=== PATIENT | female | born 1980 | race Caucasian/White ===

== ENCOUNTER 2021-04-09 21:51 | Inpatient (IN) | payer OTHER, SELFPAY ==
[2021-04-09] MEDS ORDERED: Ketamine 50 MG/ML (10ML VIAL) ONE (21:53)
[2021-04-09] MEDS ORDERED: Fentanyl 100 MCG/2 ML VIAL ONE (22:05)
[2021-04-09 22:12] LABS: #Eosinphils 0.2 thou/uL (0.0-0.7); #Lymphocytes 5.2 thou/uL (1.20-3.40); #Monocytes 0.5 thou/uL (0.11-0.59); #Neutrophils 6.1 thou/uL (1.40-6.50); %Basophils 0.2 % (0.0-1.0); %Eosinophils 1.7 % (0.0-10.0); %Lymphocytes 42.7 % (21.0-51.0); %Monocytes 4.5 % (0.0-10.0); %Neutrophils 50.9 % (42.0-75.0); Hemoglobin 10.8 g/dL (12.0-16.0); Mean Corpuscular HGB CONC 32.7 g/dL (32.0-36.0); Mean Corpuscular Hemoglobin 30.1 pg (27.0-31.0); Mean Platelet Volume 6.1 fL (7.4-10.4); Platelet Count 331 thou/uL (130-400); RBC Distribution Width 12.4 % (11.5-14.5); White Blood Cell (WBC) Count 12.1 thou/uL (4.8-10.8)
[2021-04-09] MEDS ORDERED: Fentanyl CADD 100 ML IV SCH (22:15)
[2021-04-09 22:18] LABS: BHCG - Serum Negative (NEGATIVE); Pregs Control Background? CLEAR/WHITE (CLR/WHITE); Pregs Control Bar Appear? YES (CONTROL BAR)
[2021-04-09 22:26] LABS: INR-International Normal Ratio 1.1; PTT 34.6 sec (22.9-36.1); Prothrombin Time 14.6 sec (12.0-14.7)
[2021-04-09 22:30] LABS: ALT (SGPT) 44 U/L (8-55); AST (SGOT) 63 U/L (5-34); Albumin 2.9 g/dL (3.5-5.0); Alcohol Less than 10 mg/dL (Less than 10); Alkaline Phosphatase 65 U/L (40-110); Anion Gap 15 mmol/L (10-20); BUN (Urea Nitrogen) 8 mg/dL (7.0-18.7); Bilirubin, Total Less than 0.2 mg/dL (0.2-1.2); Calc. Creatinine Clearance 0 mL/min (70-130); Calcium 7.4 mg/dL (7.8-10.44); Carbon Dioxide 24 mmol/L (22-29); Chloride 108 mmol/L (98-107); Globulin 2.4 g/dL (2.4-3.5); Glucose 156 mg/dL (70-105); Protein, Total 5.3 g/dL (6.0-8.3); Sodium 144 mmol/L (136-145)
[2021-04-09] MEDS ORDERED: Promethazine HCl 25 MG/ML VIAL IM PRN (22:32)
[2021-04-09] MEDS ORDERED: Ondansetron PF 4 MG/2 ML Vial IVP PRN (22:32)
[2021-04-09] MEDS ORDERED: Ondansetron ODT 4 MG TAB PO PRN (22:32)
[2021-04-09] MEDS ORDERED: Dextrose 50% Abboject 50 ML SYRINGE SLOW IVP PRN (22:32)
[2021-04-09] MEDS ORDERED: Dextrose 5% in Water 1,000 ML IV PRN (22:32)
[2021-04-09] MEDS ORDERED: hydrALAZINE 20 MG/ML VIAL SLOW IVP PRN (22:32)
[2021-04-09 22:33] LABS: Potassium 2.8 mmol/L (3.5-5.1)
[2021-04-09] MEDS ORDERED: CEFAZOLIN 1 GM VIAL ONE (22:39)
[2021-04-09] MEDS ORDERED: Boostrix 0.5 ML (Tdap) VIAL ONE (22:39)
[2021-04-09 22:43] LABS: CO2 Tension 37.6 mmHg (35.0-45.0); pH, Arterial 7.49 (7.35-7.45)
[2021-04-09 22:44] LABS: Actual Bicarbonate (HCO3a) 28.3 mEq/L (22-28); Base Excess (BEa) 4.8 mEq/L (-2.0 to +3.0); Carboxyhemoglobin (COHb) 1.5 gm% (0.0-3.0); Hemoglobin (Hb) 10.4 g/dL (12.0-16.0); O2 Tension (PaO2), arterial 49.8 mmHg (80.0-100.0)
[2021-04-09 22:45] LABS: Analyzer IN Cardio ER; Calcium, Ionized (arterial) 0.98 mmol/L (1.12-1.30); Potassium - ABG Lab 2.36 mmol/L (3.70-5.30); Puncture Site RRA
[2021-04-09] MEDS ORDERED: Sodium Chloride 0.9% 1,000 ML IV SCH (22:45)
[2021-04-09 22:56] LABS: Amphetamine Not Detected (NotDetected); Bacteria/HPF None Seen HPF (None Seen); Barbiturates Screen Not Detected (NotDetected); Benzodiazepine Screen Not Detected (NotDetected); Bilirubin Negative (Negative); Blood, Urine 1+ (Negative); Clarity Turbid (Clear); Cocaine Metabolite Screen Not Detected (NotDetected); Glucose, Urine (Dipstick) Normal (Negative); Ketone, Urine Negative (Negative); Leukocyte Negative Leu/uL (Negative); Methadone Not Detected (NotDetected); Methamphetamine Not Detected (NotDetected); Nitrite Negative (Negative); Opiate Screen Not Detected (NotDetected); Oxycodone Screen Not Detected (NotDetected); Phencyclidine (PCP) Not Detected (NotDetected); Protein, Urine (Dipstick) 50 mg/dL (Neg-Trace); RBC/HPF 21-50 HPF (0-3); Specific Gravity, Urine 1.019 (1.002-1.036); Squamous Epithelial 0-3 HPF (0-3); THC/Cannabinoid Screen Not Detected (NotDetected); Tricyclic Screen Not Detected (NotDetected); Urobilinogen Normal mg/dL (Less than 2); pH, Urine 8.5 (5.0-9.0)
[2021-04-09] MEDS ORDERED: Calcium Chloride 1 GM/10 ML Abboject SYRINGE ONE ×3 (23:04→23:06)
[2021-04-09 23:35] LABS: Hemoglobin 8.9 g/dL (12.0-16.0)
[2021-04-10 00:39] LABS: Magnesium 1.8 mg/dL (1.6-2.6); Phosphorus 2.4 mg/dL (2.3-4.7)
[2021-04-10 00:45] LABS: SARS-CoV-2 NAA Rapid Test DETECTED (NotDetected)
[2021-04-10 01:11] LABS: Actual Bicarbonate (HCO3a) 21.7 mEq/L (22-28); Base Excess (BEa) -1.8 mEq/L (-2.0 to +3.0); CO2 Tension 31.1 mmHg (35.0-45.0); Carboxyhemoglobin (COHb) 1.5 gm% (0.0-3.0); Hemoglobin (Hb) 6.7 g/dL (12.0-16.0); O2 Tension (PaO2), arterial 78.3 mmHg (80.0-100.0); Potassium - ABG Lab 2.57 mmol/L (3.70-5.30); pH, Arterial 7.46 (7.35-7.45)
[2021-04-10 01:15] LABS: ALV-art Gradient 239.325 mmHg (0-20); Puncture Site Arterial Line
[2021-04-10] MEDS: Potassium Chloride 20 MEQ in Premix Bag 1 BAG IVPB SCH ×2 (02:56→04:42)
[2021-04-10 03:57] LABS: Hemoglobin 7.8 g/dL (12.0-16.0); Mean Corpuscular HGB CONC 32.7 g/dL (32.0-36.0); Mean Corpuscular Hemoglobin 30.2 pg (27.0-31.0); Mean Corpuscular Volume 92.4 fL (78.0-98.0); Mean Platelet Volume 6.2 fL (7.4-10.4); Platelet Count 220 thou/uL (130-400); RBC Distribution Width 12.4 % (11.5-14.5); Red Blood Cell (RBC) Count 2.58 mill/uL (4.20-5.40); White Blood Cell (WBC) Count 18.4 thou/uL (4.8-10.8)
[2021-04-10 04:01] LABS: SARS-CoV-2 NAA Rapid Test DETECTED (NotDetected)
[2021-04-10 05:02] LABS: Anion Gap 15 mmol/L (10-20); BUN (Urea Nitrogen) 8 mg/dL (7.0-18.7); Calc. Creatinine Clearance 103 mL/min (70-130); Calcium 9.5 mg/dL (7.8-10.44); Carbon Dioxide 20 mmol/L (22-29); Chloride 119 mmol/L (98-107); Glucose 110 mg/dL (70-105); Magnesium 1.9 mg/dL (1.6-2.6); Phosphorus 2.9 mg/dL (2.3-4.7); Potassium 3.2 mmol/L (3.5-5.1); Sodium 151 mmol/L (136-145)
[2021-04-10] MEDS: Lactated Ringer's 1,000 ML IV SCH ×3 (05:16→15:19)
[2021-04-10] MEDS ORDERED: Magnesium Sulfate 3 GM in Sodium Chloride 0.9% 250 ML 250 ML IVPB SCH (05:30)
[2021-04-10 05:38] LABS: Band 19 % (5-11); Eosinophils 1 % (0-10); Lymphocytes 16 % (21-51); MDiff Complete? YES; Monocytes 1 % (0-10); Myelocyte 1 % (0-0); Neutrophil 62 % (42-75)
[2021-04-10] MEDS ORDERED: Potassium Phosphate 30 MMOL in Sodium Chloride 0.9% 250 ML 250 ML IVPB SCH (06:00)
[2021-04-10] MEDS: Famotidine/PF 20 mg/2ml Vial SLOW IVP SCH ×2 (07:32→20:45)
[2021-04-10] MEDS ORDERED: Hydrocortisone Sod Succ/PF 100 mg/2 ml Vial IVP SCH (07:45)
[2021-04-10 07:53] LABS: Actual Bicarbonate (HCO3a) 18.9 mEq/L (22-28); Base Excess (BEa) -2.7 mEq/L (-2.0 to +3.0); Calcium, Ionized (arterial) 1.24 mmol/L (1.12-1.30); Carboxyhemoglobin (COHb) 1.2 gm% (0.0-3.0); Hemoglobin (Hb) 6.4 g/dL (12.0-16.0)
[2021-04-10] MEDS ORDERED: Norepinephrine 8 MG/0.9% NS 250 ML ONE (08:41)
[2021-04-10] MEDS ORDERED: Norepinephrine 8 MG/0.9% NS 250 ML IVPB SCH (08:45)
[2021-04-10] MEDS: Levothyroxine Sodium 400 MCG in Sodium Chloride 0.9% 100 ML IVPB SCH (09:13)
[2021-04-10] MEDS: Vasopressin 20 UNIT, Admixture Fee 1 EACH in Sodium Chloride 0.9% 50 ML IV SCH ×2 (09:15→15:05)
[2021-04-10] MEDS: Hydrocortisone Sod Succ/PF 100 mg/2 ml Vial IVP SCH ×2 (12:30→16:39)
[2021-04-10] MEDS ORDERED: Albumin 5% 250 ML ONE (13:01)
[2021-04-10] MEDS: Albuterol 200 PUFF (6.7GM INHALER) INH SCH ×2 (13:21→23:57)
[2021-04-10] MEDS ORDERED: ceFAZolin Sodium (SDC) 2 GM in Premix Bag 1 BAG IVPB SCH (14:00)
[2021-04-10 14:01] LABS: ALV-art Gradient 188.075 mmHg (0-20); CO2 Tension 20.9 mmHg (35.0-45.0); Puncture Site Arterial Line; pH, Arterial 7.58 (7.35-7.45)
[2021-04-10 14:03] LABS: Actual Bicarbonate (HCO3a) 19.7 mEq/L (22-28); Base Excess (BEa) -4.5 mEq/L (-2.0 to +3.0); CO2 Tension 32.3 mmHg (35.0-45.0); Calcium, Ionized (arterial) 1.15 mmol/L (1.12-1.30); Hemoglobin (Hb) 8.4 g/dL (12.0-16.0); O2 Tension (PaO2), arterial 167.2 mmHg (80.0-100.0); Potassium - ABG Lab 4.19 mmol/L (3.70-5.30)
[2021-04-10 14:04] LABS: ALV-art Gradient 77.625 mmHg (0-20); Puncture Site Arterial Line
[2021-04-10 15:05] VITALS: BP 125/75
[2021-04-10 16:05] LABS: Hemoglobin 7.6 g/dL (12.0-16.0)
[2021-04-10 16:30] LABS: Anion Gap 16 mmol/L (10-20); BUN (Urea Nitrogen) 9 mg/dL (7.0-18.7); Calc. Creatinine Clearance 93 mL/min (70-130); Calcium 8.1 mg/dL (7.8-10.44); Carbon Dioxide 20 mmol/L (22-29); Chloride 126 mmol/L (98-107); Glucose 253 mg/dL (70-105); Magnesium 2.3 mg/dL (1.6-2.6); Phosphorus 3.8 mg/dL (2.3-4.7); Potassium 3.9 mmol/L (3.5-5.1); Sodium 158 mmol/L (136-145)
[2021-04-10 19:41] LABS: Hemoglobin 7.8 g/dL (12.0-16.0)
[2021-04-10 19:55] LABS: Sodium 156 mmol/L (136-145)
[2021-04-10] MEDS ORDERED: HumaLOG 300 UNITS/3 ML VIAL SC PRN (20:40)
[2021-04-10] MEDS: CEFAZOLIN 2 GM, Admixture Fee 1 EACH in Sodium Chloride 0.9% 100 ML IVPB SCH (20:45)
[2021-04-11] MEDS: Vasopressin 20 UNIT, Admixture Fee 1 EACH in Sodium Chloride 0.9% 50 ML IV SCH (00:14)
[2021-04-11] MEDS: Hydrocortisone Sod Succ/PF 100 mg/2 ml Vial IVP SCH ×4 (00:30→17:14)
[2021-04-11] MEDS: Lactated Ringer's 1,000 ML IV SCH ×3 (00:30→14:35)
[2021-04-11] MEDS: HumaLOG 300 UNITS/3 ML VIAL SC PRN ×2 (00:31→03:42)
[2021-04-11] MEDS: Levothyroxine Sodium 400 MCG in Sodium Chloride 0.9% 100 ML IVPB SCH ×2 (00:47→14:34)
[2021-04-11 01:40] LABS: Sodium 155 mmol/L (136-145)
[2021-04-11 04:59] LABS: Anion Gap 8 mmol/L (10-20); BUN (Urea Nitrogen) 8 mg/dL (7.0-18.7); Calc. Creatinine Clearance 114 mL/min (70-130); Calcium 8.5 mg/dL (7.8-10.44); Carbon Dioxide 26 mmol/L (22-29); Chloride 123 mmol/L (98-107); Glucose 194 mg/dL (70-105); Magnesium 2.3 mg/dL (1.6-2.6); Phosphorus 2.7 mg/dL (2.3-4.7); Potassium 3.3 mmol/L (3.5-5.1); Sodium 154 mmol/L (136-145)
[2021-04-11 05:23] LABS: Band 20 % (5-11); Hemoglobin 6.5 g/dL (12.0-16.0); Lymphocytes 7 % (21-51); MDiff Complete? YES; Mean Corpuscular HGB CONC 33.5 g/dL (32.0-36.0); Mean Corpuscular Hemoglobin 31.2 pg (27.0-31.0); Mean Corpuscular Volume 93.2 fL (78.0-98.0); Mean Platelet Volume 7.1 fL (7.4-10.4); Monocytes 1 % (0-10); Neutrophil 72 % (42-75); Platelet Count 119 thou/uL (130-400); Platelet Morphology Comment Appears Decreased; RBC Distribution Width 12.7 % (11.5-14.5); Red Blood Cell (RBC) Count 2.09 mill/uL (4.20-5.40); Small Platelets SLIGHT; White Blood Cell (WBC) Count 17.6 thou/uL (4.8-10.8)
[2021-04-11] MEDS ORDERED: Potassium Chloride 40 MEQ in Premix Bag 1 BAG IVPB SCH (05:30)
[2021-04-11 05:35] VITALS: BMI 25.6
[2021-04-11] MEDS: CEFAZOLIN 2 GM, Admixture Fee 1 EACH in Sodium Chloride 0.9% 100 ML IVPB SCH ×2 (06:55→14:40)
[2021-04-11] MEDS: Albuterol 200 PUFF (6.7GM INHALER) INH SCH ×3 (07:06→19:04)
[2021-04-11 07:19] LABS: Sodium 152 mmol/L (136-145)
[2021-04-11] MEDS: Famotidine/PF 20 mg/2ml Vial SLOW IVP SCH (07:59)
[2021-04-11 12:57] LABS: Sodium 151 mmol/L (136-145)
[2021-04-11 16:00] VITALS: TEMP 98.1
== END 2021-04-11 10:49 | disposition expired | DRG 963 ==
LOC: ERS 21:51 → CCU 22:32
PROVIDERS: ADMIT Specialist; ATTEND Surgery
PROC: 0BH17EZ Insertion of Endotracheal Airway into Trachea, Via Natural or Artificial Opening (ICD-10-PCS; principal; 2021-04-09)
PROC: 5A1945Z Respiratory Ventilation, 24-96 Consecutive Hours (ICD-10-PCS; 2021-04-09)
PROC: 8E0ZXY6 Isolation (ICD-10-PCS; 2021-04-09)
PROC: 02HV33Z Insertion of Infusion Device into Superior Vena Cava, Percutaneous Approach (ICD-10-PCS; 2021-04-10)
PROC: 3E033XZ Introduction of Vasopressor into Peripheral Vein, Percutaneous Approach (ICD-10-PCS; 2021-04-10)
DX: S02.91XB Unspecified fracture of skull, initial encounter for open fracture (principal); S36.031A Moderate laceration of spleen, initial encounter; J96.00 Acute respiratory failure, unspecified whether with hypoxia or hypercapnia; U07.1 COVID-19; S06.A1XA Traumatic brain compression with herniation, initial encounter; S27.321A Contusion of lung, unilateral, initial encounter; S36.021A Major contusion of spleen, initial encounter; F84.0 Autistic disorder; D62 Acute posthemorrhagic anemia; E23.2 Diabetes insipidus; E87.0 Hyperosmolality and hypernatremia; S06.1X9A Traumatic cerebral edema with loss of consciousness of unspecified duration, initial encounter; S06.6X9A Traumatic subarachnoid hemorrhage with loss of consciousness of unspecified duration, initial encounter; G93.89 Other specified disorders of brain; F41.9 Anxiety disorder, unspecified; R40.2333 Coma scale, best motor response, abnormal flexion, at hospital admission; R40.2113 Coma scale, eyes open, never, at hospital admission; S06.5X9A Traumatic subdural hemorrhage with loss of consciousness of unspecified duration, initial encounter; S06.4X9A Epidural hemorrhage with loss of consciousness of unspecified duration, initial encounter; F31.9 Bipolar disorder, unspecified; F90.9 Attention-deficit hyperactivity disorder, unspecified type; R40.2213 Coma scale, best verbal response, none, at hospital admission; E87.6 Hypokalemia; M79.7 Fibromyalgia; S42.102A Fracture of unspecified part of scapula, left shoulder, initial encounter for closed fracture; E83.42 Hypomagnesemia; E83.39 Other disorders of phosphorus metabolism; V03.99XA Pedestrian with other conveyance injured in collision with car, pick-up truck or van, unspecified whether traffic or nontraffic accident, initial encounter; Z88.2 Allergy status to sulfonamides; Z88.1 Allergy status to other antibiotic agents; Z98.890 Other specified postprocedural states
CPT/HCPCS: 31500; 36415; 36416; 36430; 36600; 70450; 70486; 70498; 71045; 71260; 72125; 72170; 74177; 78610; 80048; 80053; 80306; 80307; 81003; 81015; 82533; 82550; 82805; 83605; 83735; 83930; 83935; 84100; 84703; 85025; 85610; 85730; 86850; 86900; 86901; 90471; 90715; 94002; 94003; 96365; 96367; 96375; 96376; 99292; A9521; G0390; J0690; J1720; J1815; J2597; J3010; J3475; J3480; J3490; J7050; J7070; J7120; P9016; P9045; S0028; U0002

== ENCOUNTER 2021-04-11 10:49 | Day surgery (SDC) | payer OTHER ==
[2021-04-11] MEDS ORDERED: Hydrocortisone Sod Succ/PF 100 mg/2 ml Vial IVP SCH (22:15)
[2021-04-11] MEDS ORDERED: Piperacillin/Tazobactam 3.375 GM in Sodium Chloride 0.9% 100 ML IVPB SCH (22:30)
[2021-04-11] MEDS: Phytonadione 10 MG/ML AMP SLOW IVP SCH (23:11)
[2021-04-11] MEDS: Lactated Ringer's 1,000 ML IV SCH (23:12)
[2021-04-12 00:11] LABS: Hemoglobin A1c 5.2 % (4.0-6.0)
[2021-04-12 00:16] LABS: INR-International Normal Ratio 1.2; PTT 34.5 sec (22.9-36.1); Prothrombin Time 15.8 sec (12.0-14.7)
[2021-04-12 00:20] LABS: Band 26 % (5-11); Hemoglobin 8.8 g/dL (12.0-16.0); Lymphocytes 6 % (21-51); MDiff Complete? YES; Mean Corpuscular HGB CONC 34.4 g/dL (32.0-36.0); Mean Corpuscular Hemoglobin 30.9 pg (27.0-31.0); Mean Platelet Volume 7.4 fL (7.4-10.4); Monocytes 17 % (0-10); Neutrophil 51 % (42-75); Platelet Count 91 thou/uL (130-400); Platelet Morphology Comment Appears Decreased; RBC Distribution Width 13.7 % (11.5-14.5); Red Blood Cell (RBC) Count 2.84 mill/uL (4.20-5.40); White Blood Cell (WBC) Count 21.2 thou/uL (4.8-10.8)
[2021-04-12 00:28] LABS: Lactic Acid 1.4 mmol/L (0.5-2.2)
[2021-04-12 00:31] LABS: ALT (SGPT) 46 U/L (8-55); AST (SGOT) 49 U/L (5-34); Albumin 2.7 g/dL (3.5-5.0); Alkaline Phosphatase 96 U/L (40-110); Anion Gap 8 mmol/L (10-20); BUN (Urea Nitrogen) 5 mg/dL (7.0-18.7); Bilirubin, Direct 0.2 mg/dL (0.1-0.3); Bilirubin, Total 0.4 mg/dL (0.2-1.2); Calc. Creatinine Clearance 149 mL/min (70-130); Calcium 8.7 mg/dL (7.8-10.44); Carbon Dioxide 22 mmol/L (22-29); Chloride 125 mmol/L (98-107); Globulin 2.1 g/dL (2.4-3.5); Glucose 125 mg/dL (70-105); Lipase 7 U/L (8-78); Magnesium 2.1 mg/dL (1.6-2.6); Phosphorus 2.4 mg/dL (2.3-4.7); Potassium 3.3 mmol/L (3.5-5.1); Protein, Total 4.8 g/dL (6.0-8.3); Sodium 152 mmol/L (136-145)
[2021-04-12 00:51] LABS: Bacteria/HPF None Seen HPF (None Seen); Bilirubin Negative (Negative); Blood, Urine Negative (Negative); Clarity Clear (Clear); Glucose, Urine (Dipstick) Normal (Negative); Ketone, Urine Negative (Negative); Leukocyte 250 Leu/uL (Negative); Nitrite Negative (Negative); Protein, Urine (Dipstick) Negative (Neg-Trace); RBC/HPF 0-3 HPF (0-3); Specific Gravity, Urine 1.004 (1.002-1.036); Urobilinogen Normal mg/dL (Less than 2)
[2021-04-12 00:55] LABS: CKMB 28.3 ng/mL (0-6.6)
[2021-04-12] MEDS ORDERED: Magnesium 2 GM/50 ML 2 GM in Premix Bag 1 BAG IVPB SCH (01:45)
[2021-04-12] MEDS ORDERED: Potassium Chloride 40 MEQ in Premix Bag 1 BAG IVPB SCH (01:45)
[2021-04-12] MEDS ORDERED: Albumin 25% 25 GM/100 ML BOT IVPB SCH (01:45)
[2021-04-12] MEDS: Phytonadione 10 MG/ML AMP SLOW IVP SCH (01:47)
[2021-04-12 01:58] LABS: Actual Bicarbonate (HCO3a) 21.7 mEq/L (22-28); CO2 Tension 28.8 mmHg (35.0-45.0); Calcium, Ionized (arterial) 1.22 mmol/L (1.12-1.30); Carboxyhemoglobin (COHb) 0.3 gm% (0.0-3.0); Hemoglobin (Hb) 9.1 g/dL (12.0-16.0); O2 Tension (PaO2), arterial 88.6 mmHg (80.0-100.0); Potassium - ABG Lab 3.17 mmol/L (3.70-5.30)
[2021-04-12] MEDS: Piperacillin/Tazobactam 3.375 GM in Sodium Chloride 0.9% 100 ML IVPB SCH ×3 (02:50→19:17)
[2021-04-12 03:30] LABS: Puncture Site RRA
[2021-04-12] MEDS: Lactated Ringer's 1,000 ML IV SCH (06:18)
[2021-04-12 06:19] VITALS: BMI 27.1
[2021-04-12 07:14] LABS: Hemoglobin 7.8 g/dL (12.0-16.0); Mean Corpuscular HGB CONC 34.6 g/dL (32.0-36.0); Mean Corpuscular Hemoglobin 31.2 pg (27.0-31.0); Mean Corpuscular Volume 90.3 fL (78.0-98.0); RBC Distribution Width 13.8 % (11.5-14.5); Red Blood Cell (RBC) Count 2.51 mill/uL (4.20-5.40); White Blood Cell (WBC) Count 21.2 thou/uL (4.8-10.8)
[2021-04-12 07:29] LABS: Lactic Acid 1.5 mmol/L (0.5-2.2)
[2021-04-12 07:44] LABS: ALT (SGPT) 36 U/L (8-55); AST (SGOT) 34 U/L (5-34); Albumin 3.8 g/dL (3.5-5.0); Alkaline Phosphatase 41 U/L (40-110); Anion Gap 9 mmol/L (10-20); BUN (Urea Nitrogen) 8 mg/dL (7.0-18.7); Bilirubin, Direct 0.2 mg/dL (0.1-0.3); Bilirubin, Total 0.4 mg/dL (0.2-1.2); Calc. Creatinine Clearance 125 mL/min (70-130); Calcium 9.1 mg/dL (7.8-10.44); Carbon Dioxide 24 mmol/L (22-29); Chloride 132 mmol/L (98-107); Globulin 1.9 g/dL (2.4-3.5); Glucose 132 mg/dL (70-105); Lipase 9 U/L (8-78); Phosphorus 2.1 mg/dL (2.3-4.7); Potassium 3.7 mmol/L (3.5-5.1); Protein, Total 5.7 g/dL (6.0-8.3); Sodium 161 mmol/L (136-145)
[2021-04-12] MEDS: Hydrocortisone Sod Succ/PF 100 mg/2 ml Vial IVP SCH ×3 (07:52→22:49)
[2021-04-12 07:59] LABS: Band 14 % (5-11); Lymphocytes 4 % (21-51); MDiff Complete? YES; Mean Platelet Volume 8.1 fL (7.4-10.4); Monocytes 2 % (0-10); Neutrophil 80 % (42-75); Platelet Count 88 thou/uL (130-400); Platelet Morphology Comment Appears Decreased
[2021-04-12 08:01] LABS: CKMB 14.4 ng/mL (0-6.6); Critical Call CKMB RESULT DECREASING
[2021-04-12 08:22] LABS: INR-International Normal Ratio 1.6; PTT 36.6 sec (22.9-36.1); Prothrombin Time 19.2 sec (12.0-14.7)
[2021-04-12] MEDS ORDERED: Potassium Phosphate 20 MMOL in Sodium Chloride 0.9% 250 ML 250 ML IVPB SCH ×2 (09:00→15:00)
[2021-04-12] MEDS: Levothyroxine Sodium 400 MCG in Sodium Chloride 0.9% 100 ML IVPB SCH (10:39)
[2021-04-12] MEDS ORDERED: Piperacillin/Tazobactam 3.375 GM VIAL ONE (10:43)
[2021-04-12 11:39] LABS: Bacteria/HPF None Seen HPF (None Seen); Bilirubin Negative (Negative); Blood, Urine Negative (Negative); Clarity Clear (Clear); Glucose, Urine (Dipstick) Normal (Negative); Ketone, Urine Negative (Negative); Leukocyte Negative Leu/uL (Negative); Nitrite Negative (Negative); Protein, Urine (Dipstick) Negative (Neg-Trace); RBC/HPF 0-3 HPF (0-3); Specific Gravity, Urine 1.002 (1.002-1.036); Squamous Epithelial None Seen HPF (0-3); Urobilinogen Normal mg/dL (Less than 2); WBC/HPF 0-3 HPF (0-3); pH, Urine 6.5 (5.0-9.0)
[2021-04-12] MEDS ORDERED: Sodium Chloride 0.45% 1,000 ML IV SCH (11:45)
[2021-04-12] MEDS ORDERED: Sodium Chloride 0.45% 500 ML IV SCH (11:45)
[2021-04-12 12:49] LABS: Hemoglobin 7.5 g/dL (12.0-16.0); Mean Corpuscular HGB CONC 35.1 g/dL (32.0-36.0); Mean Corpuscular Hemoglobin 31.8 pg (27.0-31.0); Mean Corpuscular Volume 90.8 fL (78.0-98.0); Platelet Count 82 thou/uL (130-400); Red Blood Cell (RBC) Count 2.36 mill/uL (4.20-5.40); White Blood Cell (WBC) Count 20.6 thou/uL (4.8-10.8)
[2021-04-12 12:53] LABS: INR-International Normal Ratio 1.3; Prothrombin Time 16.1 sec (12.0-14.7)
[2021-04-12 12:54] LABS: PTT 33.1 sec (22.9-36.1)
[2021-04-12 13:02] LABS: Lactic Acid 1.2 mmol/L (0.5-2.2)
[2021-04-12 13:09] LABS: Band 7 % (5-11); Lymphocytes 6 % (21-51); MDiff Complete? YES; Monocytes 1 % (0-10); Neutrophil 86 % (42-75); Platelet Morphology Comment Appears Decreased; Polychromasia SLIGHT = 2-3 cells (100X) (0-2/hpf)
[2021-04-12 13:22] LABS: ALT (SGPT) 35 U/L (8-55); AST (SGOT) 30 U/L (5-34); Albumin 3.5 g/dL (3.5-5.0); Alkaline Phosphatase 42 U/L (40-110); Anion Gap 7 mmol/L (10-20); BUN (Urea Nitrogen) 10 mg/dL (7.0-18.7); Bilirubin, Direct 0.2 mg/dL (0.1-0.3); Bilirubin, Total 0.4 mg/dL (0.2-1.2); Calc. Creatinine Clearance 125 mL/min (70-130); Carbon Dioxide 25 mmol/L (22-29); Chloride 134 mmol/L (98-107); Globulin 1.9 g/dL (2.4-3.5); Glucose 124 mg/dL (70-105); Lipase 14 U/L (8-78); Magnesium 2.9 mg/dL (1.6-2.6); Phosphorus 2.7 mg/dL (2.3-4.7); Potassium 3.5 mmol/L (3.5-5.1); Protein, Total 5.4 g/dL (6.0-8.3); Sodium 162 mmol/L (136-145)
[2021-04-12] MEDS: Albumin 25% 25 GM/100 ML BOT IVPB SCH (15:15)
[2021-04-12 16:12] LABS: Actual Bicarbonate (HCO3a) 20.9 mEq/L (22-28); Base Excess (BEa) -2.5 mEq/L (-2.0 to +3.0); CO2 Tension 30.3 mmHg (35.0-45.0); Calcium, Ionized (arterial) 1.19 mmol/L (1.12-1.30); Carboxyhemoglobin (COHb) 0.3 gm% (0.0-3.0); Hemoglobin (Hb) 7.4 g/dL (12.0-16.0); O2 Tension (PaO2), arterial 117.7 mmHg (80.0-100.0); Potassium - ABG Lab 3.58 mmol/L (3.70-5.30); pH, Arterial 7.46 (7.35-7.45)
[2021-04-12 17:27] LABS: Hemoglobin 7.1 g/dL (12.0-16.0); Mean Corpuscular HGB CONC 35.4 g/dL (32.0-36.0); Mean Corpuscular Hemoglobin 32.2 pg (27.0-31.0); Mean Corpuscular Volume 91.1 fL (78.0-98.0); Mean Platelet Volume 7.9 fL (7.4-10.4); Platelet Count 74 thou/uL (130-400); Red Blood Cell (RBC) Count 2.21 mill/uL (4.20-5.40); White Blood Cell (WBC) Count 19.6 thou/uL (4.8-10.8)
[2021-04-12 17:33] LABS: INR-International Normal Ratio 1.3; PTT 33.9 sec (22.9-36.1); Prothrombin Time 16.4 sec (12.0-14.7)
[2021-04-12 17:38] LABS: Lactic Acid 1.1 mmol/L (0.5-2.2)
[2021-04-12 18:14] LABS: Band 18 % (5-11); Lymphocytes 6 % (21-51); MDiff Complete? YES; Monocytes 1 % (0-10); Neutrophil 75 % (42-75); Ovalocytes SLIGHT = 2-5 cells (100X) (0-1/hpf); Platelet Morphology Comment Appears Decreased; Polychromasia MODERATE = 3-4 cells (100X) (0-2/hpf)
[2021-04-12 18:29] LABS: ALT (SGPT) 31 U/L (8-55); AST (SGOT) 25 U/L (5-34); Albumin 4.3 g/dL (3.5-5.0); Alkaline Phosphatase 40 U/L (40-110); Anion Gap 9 mmol/L (10-20); BUN (Urea Nitrogen) 12 mg/dL (7.0-18.7); Bilirubin, Direct 0.3 mg/dL (0.1-0.3); Bilirubin, Total 0.5 mg/dL (0.2-1.2); Calc. Creatinine Clearance 125 mL/min (70-130); Calcium 8.9 mg/dL (7.8-10.44); Carbon Dioxide 25 mmol/L (22-29); Chloride 130 mmol/L (98-107); Globulin 1.9 g/dL (2.4-3.5); Glucose 127 mg/dL (70-105); Lipase 22 U/L (8-78); Magnesium 2.8 mg/dL (1.6-2.6); Phosphorus 4.2 mg/dL (2.3-4.7); Potassium 3.6 mmol/L (3.5-5.1); Protein, Total 6.2 g/dL (6.0-8.3); Sodium 160 mmol/L (136-145)
[2021-04-12 19:32] LABS: SARS-CoV-2 PCR by NAA Not Detected (NotDetected)
[2021-04-12 22:06] LABS: Base Excess (BEa) -2.8 mEq/L (-2.0 to +3.0); CO2 Tension 32.1 mmHg (35.0-45.0); Calcium, Ionized (arterial) 1.17 mmol/L (1.12-1.30); Carboxyhemoglobin (COHb) 0.3 gm% (0.0-3.0); Hemoglobin (Hb) 8.2 g/dL (12.0-16.0); O2 Tension (PaO2), arterial 426.9 mmHg (80.0-100.0); pH, Arterial 7.43 (7.35-7.45)
[2021-04-12 22:10] LABS: ALV-art Gradient 245.975 mmHg (0-20); Puncture Site RRA
[2021-04-12 23:47] LABS: Hemoglobin 8.7 g/dL (12.0-16.0); Mean Corpuscular HGB CONC 34.5 g/dL (32.0-36.0); Mean Corpuscular Volume 92.9 fL (78.0-98.0); Mean Platelet Volume 7.9 fL (7.4-10.4); Platelet Count 72 thou/uL (130-400); RBC Distribution Width 13.8 % (11.5-14.5); White Blood Cell (WBC) Count 20.9 thou/uL (4.8-10.8)
[2021-04-12 23:50] LABS: INR-International Normal Ratio 1.3; PTT 32.3 sec (22.9-36.1)
[2021-04-12 23:57] LABS: Bilirubin Negative (Negative); Blood, Urine 1+ (Negative); Clarity Clear (Clear); Glucose, Urine (Dipstick) 100 mg/dL (Negative); Ketone, Urine Trace mg/dL (Negative); Leukocyte Negative Leu/uL (Negative); Nitrite Negative (Negative); Protein, Urine (Dipstick) 30 mg/dL (Neg-Trace); RBC/HPF 0-3 HPF (0-3); Specific Gravity, Urine 1.031 (1.002-1.036); Squamous Epithelial None Seen HPF (0-3); Urobilinogen Normal mg/dL (Less than 2); WBC/HPF 0-3 HPF (0-3); pH, Urine 5.5 (5.0-9.0)
[2021-04-13 00:02] LABS: Lactic Acid 1.3 mmol/L (0.5-2.2)
[2021-04-13 00:11] LABS: ALT (SGPT) 31 U/L (8-55); AST (SGOT) 26 U/L (5-34); Albumin 3.9 g/dL (3.5-5.0); Alkaline Phosphatase 63 U/L (40-110); Anion Gap 9 mmol/L (10-20); BUN (Urea Nitrogen) 13 mg/dL (7.0-18.7); Bilirubin, Direct 0.4 mg/dL (0.1-0.3); Bilirubin, Total 0.7 mg/dL (0.2-1.2); CK (CPK) 558 U/L (29-168); Calc. Creatinine Clearance 132 mL/min (70-130); Calcium 8.7 mg/dL (7.8-10.44); Carbon Dioxide 24 mmol/L (22-29); Chloride 130 mmol/L (98-107); Glucose 129 mg/dL (70-105); Lipase 45 U/L (8-78); Magnesium 2.6 mg/dL (1.6-2.6); Phosphorus 3.1 mg/dL (2.3-4.7); Potassium 3.4 mmol/L (3.5-5.1); Protein, Total 5.9 g/dL (6.0-8.3); Sodium 160 mmol/L (136-145)
[2021-04-13 00:16] LABS: Band 8 % (5-11); MDiff Complete? YES; Monocytes 3 % (0-10); Neutrophil 83 % (42-75); Platelet Morphology Comment Appears Decreased; Polychromasia SLIGHT = 2-3 cells (100X) (0-2/hpf); Reactive Lymphocytes 6 % (0-10)
[2021-04-13 00:51] LABS: Bacteria/HPF 1+ HPF (None Seen)
[2021-04-13] MEDS: Piperacillin/Tazobactam 3.375 GM in Sodium Chloride 0.9% 100 ML IVPB SCH ×3 (02:38→20:10)
[2021-04-13] MEDS: Hydrocortisone Sod Succ/PF 100 mg/2 ml Vial IVP SCH ×3 (06:45→23:58)
[2021-04-13 06:46] LABS: INR-International Normal Ratio 1.2; PTT 31.2 sec (22.9-36.1); Prothrombin Time 15.1 sec (12.0-14.7)
[2021-04-13 06:50] LABS: Hemoglobin 8.7 g/dL (12.0-16.0); Mean Corpuscular Volume 92.1 fL (78.0-98.0); Red Blood Cell (RBC) Count 2.75 mill/uL (4.20-5.40); White Blood Cell (WBC) Count 23.9 thou/uL (4.8-10.8)
[2021-04-13 06:52] LABS: Lactic Acid 1.1 mmol/L (0.5-2.2)
[2021-04-13 06:58] LABS: ALT (SGPT) 30 U/L (8-55); AST (SGOT) 23 U/L (5-34); Albumin 3.9 g/dL (3.5-5.0); Alkaline Phosphatase 65 U/L (40-110); Anion Gap 7 mmol/L (10-20); BUN (Urea Nitrogen) 12 mg/dL (7.0-18.7); Bilirubin, Direct 0.3 mg/dL (0.1-0.3); Bilirubin, Total 0.5 mg/dL (0.2-1.2); CK (CPK) 491 U/L (29-168); Calc. Creatinine Clearance 141 mL/min (70-130); Calcium 7.9 mg/dL (7.8-10.44); Carbon Dioxide 27 mmol/L (22-29); Globulin 1.4 g/dL (2.4-3.5); Glucose 132 mg/dL (70-105); Lipase 82 U/L (8-78); Magnesium 2.4 mg/dL (1.6-2.6); Phosphorus 2.9 mg/dL (2.3-4.7); Potassium 3.2 mmol/L (3.5-5.1); Protein, Total 5.3 g/dL (6.0-8.3); Sodium 157 mmol/L (136-145)
[2021-04-13 07:00] LABS: Lymphocytes 3 % (21-51); MDiff Complete? YES; Mean Corpuscular HGB CONC 34.2 g/dL (32.0-36.0); Mean Corpuscular Hemoglobin 31.5 pg (27.0-31.0); Mean Platelet Volume 8.2 fL (7.4-10.4); Monocytes 3 % (0-10); Neutrophil 94 % (42-75); Platelet Count 78 thou/uL (130-400); Platelet Morphology Comment Appears Decreased; Polychromasia SLIGHT = 2-3 cells (100X) (0-2/hpf); RBC Distribution Width 13.8 % (11.5-14.5)
[2021-04-13 07:06] LABS: Chloride 126 mmol/L (98-107)
[2021-04-13 07:55] LABS: Actual Bicarbonate (HCO3a) 21.4 mEq/L (22-28); Base Excess (BEa) -2.9 mEq/L (-2.0 to +3.0); CO2 Tension 35.5 mmHg (35.0-45.0); Calcium, Ionized (arterial) 1.17 mmol/L (1.12-1.30); Carboxyhemoglobin (COHb) 0.3 gm% (0.0-3.0); Hemoglobin (Hb) 10.5 g/dL (12.0-16.0); O2 Tension (PaO2), arterial 284.3 mmHg (80.0-100.0); Potassium - ABG Lab 3.15 mmol/L (3.70-5.30)
[2021-04-13] MEDS: Levothyroxine Sodium 400 MCG in Sodium Chloride 0.9% 100 ML IVPB SCH (07:55)
[2021-04-13 08:01] LABS: ALV-art Gradient 384.325 mmHg (0-20); Puncture Site RRA
[2021-04-13 11:28] LABS: INR-International Normal Ratio 1.2; Prothrombin Time 14.9 sec (12.0-14.7)
[2021-04-13 11:34] LABS: Lactic Acid 1.1 mmol/L (0.5-2.2)
[2021-04-13 11:41] LABS: Band 7 % (5-11); Lymphocytes 3 % (21-51); MDiff Complete? YES; Mean Corpuscular HGB CONC 33.8 g/dL (32.0-36.0); Mean Corpuscular Hemoglobin 31.4 pg (27.0-31.0); Mean Corpuscular Volume 93.1 fL (78.0-98.0); Mean Platelet Volume 8.3 fL (7.4-10.4); Monocytes 3 % (0-10); Neutrophil 87 % (42-75); Platelet Count 84 thou/uL (130-400); Platelet Morphology Comment Appears Decreased; RBC Distribution Width 13.8 % (11.5-14.5); Red Blood Cell (RBC) Count 2.87 mill/uL (4.20-5.40); White Blood Cell (WBC) Count 25.1 thou/uL (4.8-10.8)
[2021-04-13 11:52] LABS: ALT (SGPT) 30 U/L (8-55); AST (SGOT) 22 U/L (5-34); Albumin 3.8 g/dL (3.5-5.0); Alkaline Phosphatase 65 U/L (40-110); Anion Gap 12 mmol/L (10-20); BUN (Urea Nitrogen) 11 mg/dL (7.0-18.7); Bacteria/HPF None Seen HPF (None Seen); Bilirubin Negative (Negative); Bilirubin, Direct 0.2 mg/dL (0.1-0.3); Bilirubin, Total 0.4 mg/dL (0.2-1.2); Blood, Urine Trace (Negative); CK (CPK) 445 U/L (29-168); Calc. Creatinine Clearance 149 mL/min (70-130); Calcium 8.1 mg/dL (7.8-10.44); Carbon Dioxide 24 mmol/L (22-29); Chloride 125 mmol/L (98-107); Clarity Clear (Clear); Globulin 1.5 g/dL (2.4-3.5); Glucose 135 mg/dL (70-105); Glucose, Urine (Dipstick) 200 mg/dL (Negative); Ketone, Urine Negative (Negative); Leukocyte Negative Leu/uL (Negative); Lipase 101 U/L (8-78); Magnesium 2.5 mg/dL (1.6-2.6); Nitrite Negative (Negative); Phosphorus 3.7 mg/dL (2.3-4.7); Potassium 3.6 mmol/L (3.5-5.1); Protein, Total 5.3 g/dL (6.0-8.3); Protein, Urine (Dipstick) 20 mg/dL (Neg-Trace); RBC/HPF 0-3 HPF (0-3); Sodium 157 mmol/L (136-145); Specific Gravity, Urine 1.025 (1.002-1.036); Squamous Epithelial None Seen HPF (0-3); Urobilinogen Normal mg/dL (Less than 2); WBC/HPF 0-3 HPF (0-3)
[2021-04-13 12:48] VITALS: TEMP 98.1
[2021-04-13] MEDS: Albumin 25% 25 GM/100 ML BOT IVPB SCH (14:52)
[2021-04-13 17:43] LABS: INR-International Normal Ratio 1.2; Prothrombin Time 14.8 sec (12.0-14.7)
[2021-04-13 17:44] LABS: PTT 31.3 sec (22.9-36.1)
[2021-04-13 17:59] LABS: ALT (SGPT) 29 U/L (8-55); AST (SGOT) 21 U/L (5-34); Albumin 3.6 g/dL (3.5-5.0); Alkaline Phosphatase 67 U/L (40-110); Anion Gap 9 mmol/L (10-20); BUN (Urea Nitrogen) 13 mg/dL (7.0-18.7); Bilirubin, Direct 0.3 mg/dL (0.1-0.3); Bilirubin, Total 0.5 mg/dL (0.2-1.2); CK (CPK) 350 U/L (29-168); Calc. Creatinine Clearance 149 mL/min (70-130); Calcium 8.6 mg/dL (7.8-10.44); Carbon Dioxide 25 mmol/L (22-29); Chloride 124 mmol/L (98-107); Glucose 132 mg/dL (70-105); Lipase 134 U/L (8-78); Magnesium 2.5 mg/dL (1.6-2.6); Phosphorus 2.6 mg/dL (2.3-4.7); Potassium 3.2 mmol/L (3.5-5.1); Protein, Total 5.6 g/dL (6.0-8.3); Sodium 155 mmol/L (136-145)
[2021-04-13 18:06] LABS: Hemoglobin 8.7 g/dL (12.0-16.0); Mean Corpuscular HGB CONC 33.8 g/dL (32.0-36.0); Mean Corpuscular Hemoglobin 31.4 pg (27.0-31.0); Mean Corpuscular Volume 92.9 fL (78.0-98.0); Mean Platelet Volume 8.2 fL (7.4-10.4); Platelet Count 80 thou/uL (130-400); RBC Distribution Width 13.7 % (11.5-14.5); Red Blood Cell (RBC) Count 2.77 mill/uL (4.20-5.40); White Blood Cell (WBC) Count 23.4 thou/uL (4.8-10.8)
[2021-04-13 18:23] LABS: Band 6 % (5-11); Lymphocytes 10 % (21-51); MDiff Complete? YES; Monocytes 2 % (0-10); Neutrophil 82 % (42-75); Platelet Morphology Comment Appears Decreased; Polychromasia SLIGHT = 2-3 cells (100X) (0-2/hpf)
[2021-04-13 18:49] LABS: Bacteria/HPF None Seen HPF (None Seen); Bilirubin Negative (Negative); Blood, Urine Trace (Negative); Clarity Clear (Clear); Glucose, Urine (Dipstick) 300 mg/dL (Negative); Ketone, Urine Trace mg/dL (Negative); Leukocyte Negative Leu/uL (Negative); Mucous/LPF Rare LPF (<2+); Nitrite Negative (Negative); Protein, Urine (Dipstick) 30 mg/dL (Neg-Trace); RBC/HPF 0-3 HPF (0-3); Specific Gravity, Urine 1.025 (1.002-1.036); Squamous Epithelial 0-3 HPF (0-3); Urobilinogen Normal mg/dL (Less than 2)
[2021-04-13 21:42] LABS: Actual Bicarbonate (HCO3a) 22.7 mEq/L (22-28); Base Excess (BEa) -1.6 mEq/L (-2.0 to +3.0); CO2 Tension 36.3 mmHg (35.0-45.0); Calcium, Ionized (arterial) 1.14 mmol/L (1.12-1.30); Carboxyhemoglobin (COHb) 0.3 gm% (0.0-3.0); Hemoglobin (Hb) 9.5 g/dL (12.0-16.0); O2 Tension (PaO2), arterial 147.8 mmHg (80.0-100.0); Potassium - ABG Lab 3.39 mmol/L (3.70-5.30); pH, Arterial 7.41 (7.35-7.45)
[2021-04-13 21:44] LABS: ALV-art Gradient 519.825 mmHg (0-20); Puncture Site RBA
[2021-04-13 22:11] VITALS: BP 126/73
[2021-04-13 23:33] LABS: INR-International Normal Ratio 1.2; PTT 31.2 sec (22.9-36.1); Prothrombin Time 14.9 sec (12.0-14.7)
[2021-04-13 23:35] LABS: Lactic Acid 0.8 mmol/L (0.5-2.2)
[2021-04-13 23:36] LABS: Band 7 % (5-11); Hemoglobin 8.4 g/dL (12.0-16.0); Hypochromia SLIGHT = 6-15 cells (100X) (0-5/hpf); MDiff Complete? YES; Mean Corpuscular HGB CONC 33.9 g/dL (32.0-36.0); Mean Corpuscular Hemoglobin 31.5 pg (27.0-31.0); Mean Corpuscular Volume 93.1 fL (78.0-98.0); Monocytes 6 % (0-10); Neutrophil 87 % (42-75); Platelet Count 72 thou/uL (130-400); Platelet Morphology Comment Appears Decreased; RBC Distribution Width 13.7 % (11.5-14.5); Red Blood Cell (RBC) Count 2.65 mill/uL (4.20-5.40); White Blood Cell (WBC) Count 20.9 thou/uL (4.8-10.8)
[2021-04-13 23:55] LABS: ALT (SGPT) 27 U/L (8-55); AST (SGOT) 16 U/L (5-34); Albumin 3.4 g/dL (3.5-5.0); Alkaline Phosphatase 63 U/L (40-110); Anion Gap 9 mmol/L (10-20); BUN (Urea Nitrogen) 13 mg/dL (7.0-18.7); Bilirubin, Direct 0.2 mg/dL (0.1-0.3); Bilirubin, Total 0.4 mg/dL (0.2-1.2); CK (CPK) 282 U/L (29-168); Calc. Creatinine Clearance 161 mL/min (70-130); Calcium 8.2 mg/dL (7.8-10.44); Carbon Dioxide 25 mmol/L (22-29); Chloride 121 mmol/L (98-107); Globulin 1.9 g/dL (2.4-3.5); Glucose 116 mg/dL (70-105); Lipase 137 U/L (8-78); Magnesium 2.3 mg/dL (1.6-2.6); Phosphorus 3.3 mg/dL (2.3-4.7); Potassium 3.4 mmol/L (3.5-5.1); Protein, Total 5.3 g/dL (6.0-8.3); Sodium 152 mmol/L (136-145)
[2021-04-14] MEDS ORDERED: Furosemide 20 MG/2 ML VIAL ONE (01:47)
[2021-04-14] MEDS ORDERED: Mannitol 12.5 GM/50 ML ONE (01:47)
== END 2021-04-14 02:06 | disposition expired ==
LOC: CCU 10:49 → SDC 10:49
DX: U07.1 COVID-19 (principal); R00.0 Tachycardia, unspecified; I07.1 Rheumatic tricuspid insufficiency; Z88.2 Allergy status to sulfonamides; Z88.5 Allergy status to narcotic agent; Z88.6 Allergy status to analgesic agent
CPT/HCPCS: 36430; 36600; 71045; 80053; 81001; 82150; 82248; 82550; 82553; 82805; 82977; 83036; 83605; 83690; 83735; 84100; 84484; 85025; 85384; 85610; 85730; 86850; 86900; 86901; 93005; 93010; 93306; 94002; 94003; J1720; J1940; J2150; J2543; J3430; J3475; J3480; J3490; J7050; J7120; P9016; P9047; U0003; U0005